=== PATIENT | female | born 1985 | race African-American/Black ===

== ENCOUNTER 2020-09-17 02:54 | Emergency (ER) | payer BC, SELFPAY ==
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
[2020-09-17 05:05] VITALS: BP 143/87; PULSE 93; RESP 20; O2SAT 99
== END 2020-09-17 05:07 | disposition home or self-care (01) ==
PROVIDERS: Emergency Provider Emergency Medicine; PCP Emergency Medicine
DX: H11.32 Conjunctival hemorrhage, left eye (principal); S00.81XA Abrasion of other part of head, initial encounter; S00.531A Contusion of lip, initial encounter; Y04.2XXA Assault by strike against or bumped into by another person, initial encounter
CPT/HCPCS: 70486; 99284

== ENCOUNTER 2024-07-31 12:29 | Emergency (ER) | payer BC, SELFPAY ==
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
--- NOTE | ~2024-07-31 | CT_ITS ---
CT abdomen pelvis w con Ordering provider: Yarelis Velasquez PA-C History: 39 years Female with . upper abd pain . Comparison: None. Technique: CT abdomen and pelvis with IV and without oral contrast. Automated exposure control and it erative reconstruction technique were employed. The dose-length product was 1111.00 mGy-cm. 100 mL Om nipaque 350 was given IV. Findings: VISUALIZED LOWER CHEST: Dependent atelectatic changes. Slight cardiomegaly. UPPER ABDOMINAL ORGANS: Liver: Slight hepatomegaly. Gallbladder: Status post cholecystectomy. Spleen: Normal. Stomach/duodenum: Normal. Pancreas: Normal. Adrenals: Normal. Kidneys: Normal. PELVIC ORGANS: The bladder is normal. Uterus: Normal. Slightly prominent left ovary measuring 4.9 x 2 .2 cm. Right ovary measures 4.1 x 1.9 cm. BOWEL AND MESENTERY: Colon: No no evidence of diverticulitis. Normal appendix. Small Bowel: Normal. No obstruction. Peritoneum/mesentery: No free air or free fluid. No mesenteric lymphadenopathy. RETROPERITONEUM: Normal aorta. No retroperitoneal lymphadenopathy. MUSCULOSKELETAL: Superficial soft tissues: The superficial soft tissues are normal. Bones: Age appropriate degenerative changes of the spine. IMPRESSION: 1. No evidence of appendicitis, diverticulitis or intestinal obstruction. 2. Mild Hepatomegaly. Reviewed, dictated and finalized at location A.
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
[2024-07-31 12:30] VITALS: BP 149/99; PULSE 105; RESP 20; TEMP 36.4; O2SAT 98
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
[2024-07-31 16:37] LABS: Basophils Percent Auto 0.2 % (0.2-1.2); Hematocrit 38.1 % (37.0-47.0); Hemoglobin 12.8 g/dL (12.0-15.0); Immature Granulocyte Absolute 0.04 K/mm3 (0.00-0.031); Immature Granulocyte Percent A 0.3 % (0-0.5); Lymphocytes Absolute Auto 1.94 K/mm3 (0.9-3.2); Lymphocytes Percent Auto 15.3 % (18.3-44.2); Mean Corpuscular HGB Conc 33.6 g/dl (32-36); Mean Corpuscular Hemoglobin 28.3 pg (26-34); Mean Corpuscular Volume 84.3 fl (80-100); Mean Platelet Volume 11.1 fl (7.4-10.4); Monocytes Absolute Auto 0.5 K/mm3 (0.1-0.6); Monocytes Percent Auto 4.2 % (2.6-8.5); Neutrophils Absolute Auto 10.1 K/mm3 (1.3-6.7); Platelet Count Result 296 k/mm3 (150-375); Red Blood Count 4.52 M/mm3 (4.2-5.4); Red Cell Distribution Width 15.2 % (11.5-14.5); White Blood Count 12.7 K/mm3 (4.5-10.0)
[2024-07-31 16:47] LABS: Alanine Aminotransferase 14 U/L (6-35); Albumin Level 4.4 g/dL (3.5-5.1); Alkaline Phosphatase 68 U/L (38-126); Anion Gap 10 mmol/L (4-12); Aspartate Amino Transferase 18 U/L (14-36); Bilirubin,Total 0.6 mg/dL (0.2-1.3); Blood Urea Nitrogen 13 mg/dL (7-17); Calcium 9.5 mg/dL (8.4-10.2); Carbon Dioxide 28 mmol/L (22-30); Chloride 100 mmol/L (98-107); Estimated CRCL calculation 97 ml/min; Estimated Glomerular Filt Rate > 60; Glucose 105 mg/dL (65-110); Lipase 109 U/L (23-300); Potassium 3.8 mmol/L (3.4-5.0); Sodium 138 mmol/L (137-145)
[2024-07-31 17:12] LABS: Ethanol < 10 mg/dL (<10)
--- NOTE | 2024-07-31 17:28 | PC.NURSE ---
pt declined straight cath, given call light - unable to provide a u/a, states will notify us when she is able to attempt
[2024-07-31 17:33] VITALS: BP 125/81; PULSE 95; RESP 17; O2SAT 97
[2024-07-31] MEDS: BELLADONNA ALK/PHENOB ELIX 10 ML, MAG HYDROX/ALUMINUM HYD/SIMETH 30 ML, LIDOCAINE HCL 2... PO (17:40)
[2024-07-31] MEDS: FAMOTIDINE 20 MG/2 ML VIAL IV PUSH (17:40)
[2024-07-31 18:12] LABS: Troponin I < 0.012 ng/mL (0.000-0.034)
[2024-07-31 18:51] LABS: BEDSIDEPREGUCG Negative (Negative)
[2024-07-31 19:16] LABS: Amphetamine Screen Urine Negative (Negative); Barbiturate Screen Urine Negative (Negative); Benzodiazepines Screen Urine Negative (Negative); Cannabinoid Screen Urine Positive (Negative); Cocaine Screen Urine Positive (Negative); Methadone Screen Urine Negative (Negative); Opiate Screen Urine Negative (Negative); Phencyclidine Screen Urine Negative (Negative)
[2024-07-31 19:22] LABS: Add Urine Microscopic? YES; Appearance Urine Cloudy (Clear); Bacteria Urine 1+ /hpf; Bilirubin Urine Negative (Negative); Blood Urine Negative (Negative); Color Urine Yellow (Yellow); Glucose Urine UA Negative (Negative); Ketones Urine Negative (Negative); Leukocyte Esterase Ur Negative LEU/UL (Negative); Nitrate Urine Negative (Negative); Protein Urine Negative (Negative); RBC Urine 0-2 /hpf (0-2); Specific Grav Ur 1.031 (1.001-1.035); Squamous Epithelial Cell Urine Moderate /hpf (Few); Urobilinogen Urine 0.2 mg/dL (<2.0); WBC Urine 0-5 /hpf (0-3); pH Urine 5.5 (5.0-9.0)
[2024-07-31] MEDS: ONDANSETRON HCL ODT 4 MG TABLET PO (21:34)
[2024-07-31 21:37] VITALS: BP 130/86; PULSE 91; RESP 15; O2SAT 99
== END 2024-07-31 21:38 | disposition home or self-care (01) ==
PROVIDERS: Physician Assistant; Emergency Provider Physician Assistant; PCP Emergency Medicine
DX: R11.2 Nausea with vomiting, unspecified (principal); R10.10 Upper abdominal pain, unspecified; S01.511A Laceration without foreign body of lip, initial encounter; Y04.2XXA Assault by strike against or bumped into by another person, initial encounter; G47.33 Obstructive sleep apnea (adult) (pediatric)
CPT/HCPCS: 36415; 70450; 70486; 72125; 74177; 80053; 80307; 81001; 81025; 82077; 83690; 84484; 85025; 96374; 99284; A9270; Q9967